=== PATIENT | male | born 1960 | race Caucasian/White ===

== ENCOUNTER 2018-03-08 19:53 | Emergency (ER) | payer BC ==
[2018-03-08] MEDS ORDERED: Cephalexin 500 MG Cap PO ONE (19:54)
[2018-03-08] MEDS ORDERED: Acetaminophen/HYDROcodone 325-5 MG Tab PO ONE (19:54)
[2018-03-08] MEDS ORDERED: Sulfamethoxazole/Trimethoprim 800-160 MG Tab PO ONE (19:54)
[2018-03-08] MEDS: Morphine 4 MG/ML Syringe IM ONE (20:43)
[2018-03-08] MEDS: Ondansetron 4 MG Tab.DIS PO ONE (20:43)
--- NOTE | 2018-03-08 20:43 | EDM.PDOC ---
ED HPI GENERAL MEDICAL PROBLEM - General Chief Complaint: Skin Complaint Stated Complaint: boil Time Seen by Provider: 03/08/18 20:01 Source of Information: Reports: Patient History Limitations: Reports: No Limitations - History of Present Illness INITIAL COMMENTS - FREE TEXT/NARRATIVE: This patient is a 57 year old male that presents to the ER. Patient reports that on Saturday he started having a boil to the left buttock. The patient reports that he went to the pharmacy and got peroxide and has been trying to clean the site. The patient reports it keeps getting larger and more painful. Patient reports he has a history of boils. Patient denies sanchez, dizziness, n, v, d , f. Patient alert and oriented. There is no streaing redness from site. Patient is not toxic appearing. Onset Date: 03/05/18 Location: Reports: Other (Left Buttock) Front/Back Body Image: 1 - abscess Quality: Reports: Throbbing Severity: Severe Improves with: Reports: None Worsens with: Reports: None Associated Symptoms: Denies: Confusion, Chest Pain, Cough, cough w sputum, Diaphoresis, Fever/Chills, Headaches, Loss of Appetite, Malaise, Nausea/Vomiting , Rash, Seizure, Shortness of Breath, Syncope, Weakness - Related Data Allergies Allergy/AdvReac Type Severity Reaction Status Date / Time No Known Allergies Allergy Verified 03/08/18 19:53 Home Meds: Home Meds Atenolol 50 mg PO DAILY 03/08/18 [History] Indomethacin 25 mg PO DAILY PRN 03/08/18 [History] Montelukast [Singulair] 10 mg PO BEDTIME 03/08/18 [History] Valsartan/Hydrochlorothiazide [Diovan Hct 160-12.5 mg Tab] 1 tab PO DAILY [History] ED ROS GENERAL - Review of Systems Review Of Systems: See Below Constitutional: Reports: No Symptoms HEENT: Reports: No Symptoms Respiratory: Reports: No Symptoms Cardiovascular: Reports: No Symptoms Endocrine: Reports: No Symptoms GI/Abdominal: Reports: No Symptoms : Reports: No Symptoms Musculoskeletal: Reports: No Symptoms Skin: Reports: Other (large abscess left buttock) Neurological: Reports: No Symptoms Psychiatric: Reports: No Symptoms Hematologic/Lymphatic: Reports: No Symptoms Immunologic: Reports: No Symptoms ED EXAM, SKIN/RASH Exam: See Below Exam Limited By: No Limitations General Appearance: Alert, WD/WN, No Apparent Distress, Anxious Head: Atraumatic, Normocephalic Neck: Normal Inspection Respiratory/Chest: No Respiratory Distress, Lungs Clear, Normal Breath Sounds, No Accessory Muscle Use Cardiovascular: Normal Peripheral Pulses, Regular Rate, Rhythm, No Edema, No Gallop, No JVD, No Murmur, No Rub Back Exam: Normal Inspection, Full Range of Motion Extremities: Normal Inspection, Normal Range of Motion, Non-Tender, No Pedal Edema, Normal Capillary Refill Neurological: Alert, Oriented, Normal Cognition, Normal Gait, No Motor/Sensory Deficits Psychiatric: Anxious Skin: Warm, Dry, Intact, No Rash, Other (large abscess with surrounding erythema. Fluctulant with about 1/2 hardened area. ) Location, Skin: Other (Left Abscess) Associated features: Warmth, Tenderness ED SKIN PROCEDURES - I&D Site: Left Buttock Skin Prep: Providone-Iodine (Betadine) Local Anesthesia: Lidocaine: 1% Plain Local Anesthetic Volume: 5cc Area Incised With: 11 Blade Drainage: Purulent, Bloody, Large Amount Probed to Break Up Loculations: Yes Packed With: None Sterile Dressinx4(s) Complications: No Course - Orders/Labs/Meds Meds: Medications Discontinued Medications Generic Name Dose Route Start Last Admin Trade Name Sloanq PRN Reason Stop Dose Admin Ceftriaxone Sodium 1 gm 03/08/18 20:32 03/08/18 20:44 Rocephin IM 03/08/18 20:33 1 gm ONETIME ONE Administration Cephalexin 1 packet 03/08/18 20:58 Take Home: Cephalexin 500 Mg, 4 Cap Pack PO 03/08/18 20:59 ONETIME ONE Lidocaine HCl 20 ml 03/08/18 20:19 03/08/18 20:44 Xylocaine 1% INJECT 03/08/18 20:20 20 ml ONETIME ONE Administration Morphine Sulfate 4 mg 03/08/18 20:20 03/08/18 20:43 Morphine IM 03/08/18 20:21 4 mg ONETIME ONE Administration Ondansetron HCl 4 mg 03/08/18 20:20 03/08/18 20:43 Zofran Odt PO 03/08/18 20:21 4 mg ONETIME ONE Administration Oxycodone/Acetaminophen 3 packet 03/08/18 20:55 Take Home: Acetaminophen/Oxycodon, 2 Tab Pack PO 03/08/18 20:56 ONETIME ONE Trimethoprim/Sulfamethoxazole 1 packet 03/08/18 20:55 Take Home: Sulfameth/Trimet 800-160mg, 2 Pack PO 03/08/18 20:56 ONETIME ONE Departure - Departure Time of Disposition: 21:26 Disposition: Home, Self-Care 01 Condition: Fair Clinical Impression: Abscess - Discharge Information *PRESCRIPTION DRUG MONITORING PROGRAM REVIEWED*: No *COPY OF PRESCRIPTION DRUG MONITORING REPORT IN PATIENT SAVANNAH: No Instructions: Skin Abscess, Percutaneous Abscess Drain, Care After Forms: ED Department Discharge Additional Instructions: Followup with your primary care provider Saturday for recheck Return to the ER for worsening of condition or any emergent concerns such as fever, vomiting, worsening of abscess. Rest Keep the wound clean Percocet 5/325mg 1-2 pills every 4-6 hours as needed for pain #15 no refill: #6 take home for Saturday Bactrim DS 1 pill twice a day for 10 days #20 no refill: #2 take home for Saturday Keflex 500mg 1 pill four times a day for 7 days #28 no refill: #4 take home for Saturday - Assessment/Plan Plan: PLEASE SEE RN NOTE FOR PFSH.
[2018-03-08] MEDS: Lidocaine 1% 20 ML MDV INJECT ONE (20:44)
[2018-03-08] MEDS: cefTRIAXone 1 GM Vial IM ONE (20:44)
[2018-03-08] MEDS: Take Home: Sulfamethoxazole/Trimethoprim 800-160 MG Tab, 2 Tab Pack PO ONE (22:03)
[2018-03-08] MEDS: Take Home: Acetaminophen/oxyCODONE 325-5 MG, 2 Tab Pack PO ONE (22:06)
[2018-03-08] MEDS: Take Home: Cephalexin 500 MG Cap, 4 Cap Pack PO ONE (22:06)
== END 2018-03-08 22:07 | disposition home or self-care (01) ==
LOC: CC.ED 19:53
DX: L02.31 Cutaneous abscess of buttock (principal); Z79.899 Other long term (current) drug therapy
CPT/HCPCS: 10060; 96372; 99282; A9270-GY; J0696; J2270